=== PATIENT | male | born 1975 | race African-American/Black ===

== ENCOUNTER 2024-03-12 06:57 | Emergency (ER) | payer MEDICARE, OTHER ==
[~2024-03-12] VITALS: Ht 180.3 cm; Wt 95.6 kg
[2024-03-12] MEDS ORDERED: TRAZ-257 PO (07:13)
[2024-03-12 07:30] LABS: BASOPHILS % (AUTO) 0.5 % (0.0-2.0); EOSINOPHILS % (AUTO) 0.7 % (1.0-6.0); HEMATOCRIT 40.9 % (41-53); HEMOGLOBIN 13.6 g/dL (13.5-17.5); LYMPHOCYTES # (AUTO) 2.7 K/uL (1.0-4.8); LYMPHOCYTES % (AUTO) 22.6 % (22.0-44.0); MEAN CORPUSCULAR HEMOGLOBIN 31.7 pg (26.0-34.0); MEAN CORPUSCULAR HGB CONC 33.2 G/dL (31.0-37.0); MEAN CORPUSCULAR VOLUME 95 fL (80-100); MONOCYTES # (AUTO) 0.7 K/uL (0.1-1.0); MONOCYTES % (AUTO) 5.8 % (2.0-9.0); NEUTROPHILS # (AUTO) 8.3 K/uL (1.8-7.7); NEUTROPHILS % (AUTO) 70.4 % (40.0-70.0); PLATELET COUNT (AUTO) 341 K/uL (150-450); RED BLOOD CELL COUNT(AUTO) 4.29 MIL/uL (4.50-5.90); RED CELL DISTRIBUTION WIDTH 13.6 % (11.5-14.5); WHITE BLOOD COUNT (AUTO) 11.8 K/uL (4.5-11.0)
[2024-03-12 07:30] LABS: COVID AG,FIA SOURCE NASAL SWAB
[2024-03-12 07:39] LABS: ANION GAP 8 mmol/L (8-16); CALCIUM, TOTAL 9.1 mg/dL (8.8-10.5); CARBON DIOXIDE 30 mmol/L (22-29); CHLORIDE 101 mmol/L (98-107); CREATININE 0.78 mg/dL (0.60-1.30); GLOMERULAR FILTR. RATE CALC > 60 mL/min (>60); GLUCOSE,RANDOM 97 mg/dL (70-110); POTASSIUM 3.8 mmol/L (3.5-5.1); SODIUM SERUM 139 mmol/L (136-145); UREA NITROGEN, BLOOD 9 mg/dL (7-18)
[2024-03-12 07:43] LABS: ALCOHOL, URINE DRUG SCREEN NEGATIVE (NEGATIVE); AMPHET/METH SCREEN,URINE NEGATIVE (NEGATIVE); BARBITURATE SCREEN, URINE NEGATIVE (NEGATIVE); BENZODIAZEPINES SCREEN,URINE NEGATIVE (NEGATIVE); CANNABINOID SCREEN,URINE POSITIVE (NEGATIVE); COCAINE SCREEN,URINE NEGATIVE (NEGATIVE); METHADONE SCREEN, URINE NEGATIVE (NEGATIVE); OPIATE SCREEN,URINE NEGATIVE (NEGATIVE); PHENCYCLIDINE SCREEN,URINE NEGATIVE (NEGATIVE)
[2024-03-12 07:51] LABS: ALCOHOL, BLOOD (SERUM) < 3 mg/dL (0-10)
[2024-03-12 07:52] LABS: SARS-COV2 (COVID) ANTIGEN,FIA Negative (Negative)
[2024-03-12 15:36] VITALS: BP 110/72; PULSE 68; RESP 18; TEMP 98.2; O2SAT 100
== END 2024-03-12 16:07 | disposition home or self-care (01) ==
LOC: EMS 06:58
DX: F25.9 Schizoaffective disorder, unspecified (principal); R45.851 Suicidal ideations; I10 Essential (primary) hypertension; F12.90 Cannabis use, unspecified, uncomplicated; F17.210 Nicotine dependence, cigarettes, uncomplicated; Z88.0 Allergy status to penicillin; Z88.5 Allergy status to narcotic agent; Z20.822 Contact with and (suspected) exposure to COVID-19
CPT/HCPCS: 99283; 87426; 80048; 85025; 36415; 80307; G0480

== ENCOUNTER 2024-03-13 18:51 | Inpatient (IN) | payer MEDICARE, MEDICAID ==
[~2024-03-13] VITALS: Ht 180.3 cm; Wt 99.5 kg
[~2024-03-13 18:51] MED LIST: TRAZ-257 PO
[2024-03-13 19:39] LABS: BASOPHILS % (AUTO) 0.8 % (0.0-2.0); EOSINOPHILS % (AUTO) 1.7 % (1.0-6.0); HEMATOCRIT 37.3 % (41-53); HEMOGLOBIN 12.4 g/dL (13.5-17.5); LYMPHOCYTES # (AUTO) 3.7 K/uL (1.0-4.8); LYMPHOCYTES % (AUTO) 36.4 % (22.0-44.0); MEAN CORPUSCULAR HEMOGLOBIN 31.7 pg (26.0-34.0); MEAN CORPUSCULAR HGB CONC 33.2 G/dL (31.0-37.0); MEAN CORPUSCULAR VOLUME 95 fL (80-100); MONOCYTES # (AUTO) 0.7 K/uL (0.1-1.0); MONOCYTES % (AUTO) 6.8 % (2.0-9.0); NEUTROPHILS # (AUTO) 5.5 K/uL (1.8-7.7); NEUTROPHILS % (AUTO) 54.3 % (40.0-70.0); PLATELET COUNT (AUTO) 314 K/uL (150-450); RED BLOOD CELL COUNT(AUTO) 3.91 MIL/uL (4.50-5.90); RED CELL DISTRIBUTION WIDTH 13.6 % (11.5-14.5); WHITE BLOOD COUNT (AUTO) 10.2 K/uL (4.5-11.0)
[2024-03-13 19:49] LABS: COVID AG,FIA SOURCE NASAL SWAB
[2024-03-13 19:50] LABS: ANION GAP 9 mmol/L (8-16); CALCIUM, TOTAL 8.7 mg/dL (8.8-10.5); CARBON DIOXIDE 29 mmol/L (22-29); CHLORIDE 102 mmol/L (98-107); CREATININE 0.82 mg/dL (0.60-1.30); GLOMERULAR FILTR. RATE CALC > 60 mL/min (>60); GLUCOSE,RANDOM 104 mg/dL (70-110); POTASSIUM 4.1 mmol/L (3.5-5.1); SODIUM SERUM 140 mmol/L (136-145); UREA NITROGEN, BLOOD 15 mg/dL (7-18)
[2024-03-13 19:55] LABS: PH,URINE DRUG SCREEN 6.5 (5.0-8.0)
[2024-03-13 20:00] LABS: ALCOHOL, URINE DRUG SCREEN NEGATIVE (NEGATIVE); AMPHET/METH SCREEN,URINE NEGATIVE (NEGATIVE); BARBITURATE SCREEN, URINE NEGATIVE (NEGATIVE); BENZODIAZEPINES SCREEN,URINE NEGATIVE (NEGATIVE); CANNABINOID SCREEN,URINE NEGATIVE (NEGATIVE); COCAINE SCREEN,URINE NEGATIVE (NEGATIVE); METHADONE SCREEN, URINE NEGATIVE (NEGATIVE); OPIATE SCREEN,URINE NEGATIVE (NEGATIVE); PHENCYCLIDINE SCREEN,URINE NEGATIVE (NEGATIVE)
[2024-03-13 20:02] LABS: ALCOHOL, BLOOD (SERUM) < 3 mg/dL (0-10)
[2024-03-13 20:13] LABS: SARS-COV2 (COVID) ANTIGEN,FIA Negative (Negative)
[2024-03-13 23:40] VITALS: BP 136/100; PULSE 18; RESP 18; TEMP 98.4; O2SAT 100
[2024-03-14] MEDS ORDERED: BACITRACIN 28 GM OINTMENT TP PRN (00:30)
[2024-03-14] MEDS ORDERED: ACETAMINOPHEN 325 MG TABLET PO PRN (00:30)
[2024-03-14] MEDS ORDERED: PETROLATUM,WHITE 28 GM JELLY TP PRN (00:30)
[2024-03-14] MEDS ORDERED: CloNIDine HCL 0.1 MG TABLET PO PRN (00:30)
[2024-03-14] MEDS ORDERED: LOPERAMIDE HCL 2 MG CAPSULE PO PRN (00:30)
[2024-03-14] MEDS ORDERED: MAG HYDROX/ALUMINUM HYD/SIMETH ES 30 ML SUSPENSION UDCUP PO PRN (00:30)
[2024-03-14] MEDS ORDERED: OMEPRAZOLE 20 MG CAPSULE PO PRN (00:30)
[2024-03-14] MEDS ORDERED: ONDANSETRON 4 MG TABLET PO PRN (00:30)
[2024-03-14] MEDS ORDERED: ALBUTEROL SULFATE HFA 90 MCG/PUFF 8 GM INHALER IH PRN (00:30)
[2024-03-14] MEDS ORDERED: BENZOCAINE/MENTHOL LOZENGE PO PRN (00:30)
[2024-03-14] MEDS ORDERED: IBUPROFEN 600 MG TABLET PO PRN (00:30)
[2024-03-14] MEDS: LORazepam 2 MG TABLET PO PRN (00:58)
[2024-03-14] MEDS: ZOLPIDEM TARTRATE 10 MG TABLET PO PRN (00:58)
[2024-03-14 02:10] VITALS: BP 136/100; PULSE 100; RESP 18; TEMP 98.3; O2SAT 100
[2024-03-14] MEDS ORDERED: INFLUENZA VIRUS VACCINE TVS (6MO+) 2024-25/PF 45 MCG/0.5 ML SYRINGE IM. ONE (05:45)
[2024-03-14 09:22] VITALS: BP 133/79; PULSE 80; RESP 18; TEMP 97.2; O2SAT 98
[2024-03-14] MEDS: NICOTINE 21 MG/24 HOUR PATCH TD SCH (10:50)
[2024-03-14] MEDS: RisperiDONE 3 MG TABLET PO SCH (17:47)
[2024-03-14] MEDS: BENZTROPINE MESYLATE 2 MG TABLET PO SCH (21:49)
[2024-03-14] MEDS: HALOPERIDOL 5 MG TABLET PO PRN (22:27)
[2024-03-14 23:39] VITALS: RESP 18
[2024-03-15 09:47] VITALS: BP 125/88; PULSE 100; RESP 17; TEMP 97.2; O2SAT 98
[2024-03-15 21:08] VITALS: BP 120/74; PULSE 100; RESP 18; TEMP 97.2; O2SAT 99
[2024-03-16 08:57] VITALS: BP 141/85; PULSE 84; RESP 18; TEMP 97; O2SAT 100
[2024-03-16 21:24] VITALS: BP 119/68; PULSE 99; RESP 18; TEMP 98.2; O2SAT 100
[2024-03-17 09:31] VITALS: BP 126/87; PULSE 95; RESP 18; TEMP 97.6; O2SAT 98
[2024-03-17 09:33] VITALS: BP 126/87; PULSE 95; RESP 18; TEMP 97.7; O2SAT 100
[2024-03-17 21:19] VITALS: RESP 18
[2024-03-18 10:13] VITALS: BP 136/80; PULSE 71; RESP 18; TEMP 97.1; O2SAT 99
[2024-03-18 21:48] VITALS: RESP 19
[2024-03-19 21:59] VITALS: BP 100/69; PULSE 86; RESP 18; TEMP 97.2; O2SAT 97
[2024-03-20 08:59] VITALS: BP 129/84; PULSE 96; RESP 17; TEMP 97.3; O2SAT 100
[2024-03-20 21:21] VITALS: RESP 18
[2024-03-21 08:31] VITALS: BP 110/73; PULSE 91; RESP 18; TEMP 97; O2SAT 99
[2024-03-21] MEDS: NICOTINE 21 MG/24 HOUR PATCH TD SCH (09:00)
[2024-03-21] MEDS: NICOTINE 14 MG/24 HOUR PATCH TD SCH (09:38)
[2024-03-21] MEDS: MAGNESIUM HYDROXIDE SUSPENSION 30 ML UDCUP PO PRN (16:30)
[2024-03-21 20:00] VITALS: BP 92/61; PULSE 103; RESP 19; TEMP 98.9; O2SAT 99
[2024-03-22] MEDS: DOCUSATE SODIUM 100 MG CAPSULE PO PRN (07:26)
[2024-03-22 09:58] VITALS: BP 135/85; PULSE 79; RESP 17; TEMP 97.5; O2SAT 100
[2024-03-22] MEDS ORDERED: RISP1SOL11 PO (16:11)
[2024-03-22] MEDS ORDERED: BENZ2TAB84 PO (16:12)
[2024-03-22] MEDS ORDERED: RISP3TAB77 PO (16:15)
== END 2024-03-22 18:10 | disposition home or self-care (01) | DRG 881 ==
LOC: EMS 18:51 → 3EI 23:28
PROVIDERS: ADMIT Psychiatry & Neurology Psychiatry; ATTEND Psychiatry & Neurology Psychiatry
DX: F32.9 Major depressive disorder, single episode, unspecified (principal); R45.851 Suicidal ideations; F41.9 Anxiety disorder, unspecified; Z20.822 Contact with and (suspected) exposure to COVID-19; G47.00 Insomnia, unspecified; K59.00 Constipation, unspecified; G89.29 Other chronic pain; Z87.891 Personal history of nicotine dependence
CPT/HCPCS: 80048; 80307; 85025; 99285; G0480

== ENCOUNTER 2024-08-11 23:32 | Emergency (ER) | payer MEDICARE, OTHER ==
[~2024-08-11 23:32] MED LIST changes: +BENZ2TAB84 PO; +RISP3TAB77 PO; -TRAZ-257 PO
== END 2024-08-12 03:07 | disposition left against medical advice (07) ==
LOC: EMS 08-12 02:59
DX: Z53.21 Procedure and treatment not carried out due to patient leaving prior to being seen by health care provider (principal)